=== PATIENT | female | born 1995 | race Hispanic/Latino ===

== ENCOUNTER 2019-10-20 08:33 | Outpatient (CLI) | payer MEDICAID ==
--- NOTE | 2019-10-20 11:19 | ULT ---
OB ULTRASOUND: HISTORY: anatomy. FINDINGS: A single live intrauterine gestation is seen with measurements corresponding to an estimated gestatio nal age of 19 weeks 3 days and ADAMS at 03/12/2020. The estimated weight measures 294 gm or 10 ou nces (8% by Hadlock criteria). measurements are as follows: BPD 4.31 cm, 19 weeks 1 day HC 16.41 cm, 19 weeks 2 days AC 14.06 cm, 19 weeks 4 days FL 3.10 cm, 19 weeks 5 days heart rate measures 149 b.p.m. Cervical length measures 4.2 cm. INO measures 11.7 cm. Placen ta is posterior fundal without evidence of placenta previa. Placenta is posterior fundal without anastasiya centa previa. A 3-vessel cord, cord insertion, kidneys, bladder,stomach, 4-chamber heart, lateral ventricles, cerebellum, spine, lips/nose, upper and lower extremities are visualized. The kidneys demonst rate bilaterally prominent renal pelves without hydronephrosis (measuring up to 5 mm). There is a 4 mm cyst in the choroid plexus. IMPRESSION: 1. Single live intrauterine gestation of 19 weeks 3 days estimated gestational age and estimated lincoln e of delivery at 03/12/2020. 2. Choroid plexus cyst. Trisomy 18 screening is recommended. POS: [id number]
== END 2019-10-20 08:34 | disposition home or self-care (01) ==
LOC: BICULT 08:33
PROVIDERS: ATTEND Family Medicine
DX: O35.0XX0 Maternal care for (suspected) central nervous system malformation in fetus, not applicable or unspecified (principal); Z3A.19 19 weeks gestation of pregnancy
CPT/HCPCS: 76805

== ENCOUNTER 2024-05-22 09:02 | Outpatient (CLI) | payer OTHER | END 2024-05-22 09:03 | disposition home or self-care (01) | LOC: BICMRI 09:02 | PROVIDERS: ATTEND Surgery | DX: N64.4 Mastodynia (principal) | CPT/HCPCS: A9577; C8908 ==